=== PATIENT | female | born 1940 | race Caucasian/White ===

== ENCOUNTER 2018-04-12 11:40 | Emergency (ER) | payer MEDICARE ==
[2018-04-12 11:51] VITALS: BP 134/102
--- NOTE | 2018-04-12 12:13 | ED Physician Documentation ---
PD HPI WOUND RECHECK - Stated complaint Stated Complaint: STITCH REMOVAL - Chief complaint Chief Complaint: Wound - Histroy obtained from History obtained from: Patient - History of Present Illness Location: Scalp Timing - onset: How many days ago (8) - Additional information Additional information: The patient is a 77-year-old female who presents for suture removal. 8 days ago an occipital scalp laceration was repaired with sutures. She denies any complications since that time, including no bleeding, drainage, or associated pain. Review of Systems Constitutional: denies: Fever Skin: denies: Rash Musculoskeletal: denies: Neck pain Neurologic: denies: Headache PD PAST MEDICAL HISTORY - Past Medical History Other Past Medical History: Visiting here from [place]. - Allergies Allergies/Adverse Reactions: Allergies Allergy/AdvReac Type Severity Reaction Status Date / Time No Known Drug Allergies Allergy Verified 04/12/18 11:51 PD ED PE NORMAL - Vitals Vital signs reviewed: Yes (initially hypertensive.) - General General: Alert and oriented X 3, Well developed/nourished - HEENT HEENT: Other (Healing occipital scalp wound, with sutures intact. No surrounding tenderness or erythema.) - Neck Neck: No bony TTP - Respiratory Respiratory: No respiratory distress - Derm Derm: No rash - Neuro Neuro: Alert and oriented X 3, Normal speech Results - Vitals Vitals: Oxygen O2 Source Room air Procedures - Suture/staple Removal (location) Scalp Suture/staple removal: # sutures (5), No complications PD MEDICAL DECISION MAKING - ED course Complexity details: d/w patient ED course: The patient presented for removal of sutures from the occipital scalp. The wound appears to be healing well. 5 sutures were removed without complication. I discussed with her potentially worrisome signs or symptoms that should prompt reevaluation. Departure - Departure Disposition: 01 Home, Self Care Clinical Impression: Visit for suture removal Condition: Stable Instructions: ED Wound Check Sutr Remove No Infec Comments: Follow-up with your primary physician or return to emergency department if any sign of infection, or otherwise worsening symptoms. Discharge Date/Time: 04/12/18 12:24
== END 2018-04-12 12:24 | disposition home or self-care (01) ==
LOC: ED 11:40
DX: Z53.21 Procedure and treatment not carried out due to patient leaving prior to being seen by health care provider (principal)
CPT/HCPCS: 99282